=== PATIENT | female | born 1985 | race African-American/Black ===

== ENCOUNTER 2021-01-28 21:50 | Emergency (ER) | payer OTHER, SELFPAY ==
--- NOTE | ~2021-01-28 | CT_ITS ---
EXAMINATION: CT abdomen pelvis w con INDICATION: Abdominal pain TECHNIQUE: Computed tomographic images of the abdomen and pelvis were obtained after the administrati on of 100 cc of Omnipaque 350 intravenous contrast. The dose-length product (DLP) was 1396.15 mGy-cm. Automated exposure control and iterative reconstruction technique were employed. COMPARISON: None available FINDINGS: Minimal dependent atelectasis is present in the lung bases. The heart size is normal. The g allbladder is surgically absent. The liver, spleen, pancreas, and adrenal glands are normal. There is a 6 mm cyst of the left kidney. Cortical scarring is noted in the lower pole of the right kidney. No pathologically enlarged abdominal or pelvic lymph nodes are identified. There is no free intraperito yamel gas or evidence of bowel obstruction. There is a midline supraumbilical hernia containing a shor t segment of nonobstructed transverse colon. Multiple additional small fat-containing supraumbilical and epigastric hernias are present. The appendix measures up to 8 mm. There is no fat stranding surro unding the appendix. Mild lumbar spondylosis is noted. There is mild wall thickening of the urinary b ladder. IMPRESSION: 1. Midline supraumbilical hernia containing a short segment of nonobstructed transverse colon and mul tiple supraumbilical and epigastric ventral hernias containing fat. 2. Appendix measuring up to 8 mm without additional findings to suggest appendicitis. Correlate for r ight lower quadrant tenderness. 3. Mild wall thickening of the urinary bladder which could reflect cystitis or incomplete distention. Reviewed, dictated and finalized at location A. IMPRESSION: 1. Midline supraumbilical hernia containing a short segment of nonobstructed tr ansverse colon and multiple supraumbilical and epigastric ventral hernias conta ining fat. 2. Appendix measuring up to 8 mm without additional findings to suggest appendi citis. Correlate for right lower quadrant tenderness. 3. Mild wall thickening of the urinary bladder which could reflect cystitis or incomplete distention.
[2021-01-28 21:56] VITALS: BP 165/120; PULSE 85; RESP 18; TEMP 36.1; O2SAT 98
[2021-01-28 22:00] LABS: Glucose Point of Care 142 mg/dl (65-105)
[2021-01-28 22:01] VITALS: PULSE 86
--- NOTE | 2021-01-28 22:09 | ECG_ITS ---
Measurements Intervals [place] Rate: 89 P: 21 [place]: 183 QRS: 8 QRSD: 81 T: 37 QT: 363 QTc: 444 Interpretive Statements SINUS RHYTHM BASELINE ARTIFACT- I, II, III, V6 NORMAL ECG Electronically Signed On 01-28-2021 23:01:07 CDT by Homar Mcgee D.O.
[2021-01-28 22:16] VITALS: BP 167/114; PULSE 74; RESP 18; O2SAT 96
[2021-01-28 22:22] LABS: Basophils Percent Auto 0.4 % (0.2-1.2); Eosinophils Absolute Auto 0.1 K/mm3 (0-0.3); Eosinophils Percent Auto 0.6 % (0-4.4); Hematocrit 38.1 % (37.0-47.0); Immature Granulocyte Absolute 0.02 K/mm3 (0.00-0.031); Immature Granulocyte Percent A 0.2 % (0-0.5); Lymphocytes Percent Auto 25.9 % (18.3-44.2); Mean Corpuscular HGB Conc 34.1 g/dl (32-36); Mean Corpuscular Hemoglobin 31.3 pg (26-34); Mean Corpuscular Volume 91.6 fl (80-100); Mean Platelet Volume 8.8 fl (7.4-10.4); Monocytes Absolute Auto 0.4 K/mm3 (0.1-0.6); Monocytes Percent Auto 4.5 % (2.6-8.5); Neutrophils Absolute Auto 5.8 K/mm3 (1.3-6.7); Neutrophils Percent Auto 68.4 % (45.5-73.1); Platelet Count Result 233 k/mm3 (150-375); Red Blood Count 4.16 M/mm3 (4.2-5.4); Red Cell Distribution Width 13.6 % (11.5-14.5); White Blood Count 8.5 K/mm3 (4.5-10.0)
[2021-01-28 23:07] VITALS: BP 170/102; PULSE 89; RESP 18; O2SAT 99
[2021-01-28 23:21] LABS: Alanine Aminotransferase 29 U/L (4-35); Albumin Level 4.3 g/dL (3.5-5.1); Alkaline Phosphatase 59 U/L (38-126); Anion Gap 13 mmol/L (8-16); Aspartate Amino Transferase 44 U/L (14-36); Bilirubin,Total 0.8 mg/dL (0.2-1.3); Blood Urea Nitrogen 12 mg/dL (7-17); Carbon Dioxide 24 mmol/L (22-30); Chloride 98 mmol/L (98-107); Estimated Glomerular Filt Rate > 60; Glucose 132 mg/dL (65-110); Lipase 89 U/L (23-300); Potassium 4.4 mmol/L (3.4-5.0); Sodium 135 mmol/L (137-145)
--- NOTE | 2021-01-28 23:41 | PC.NURSE ---
2330 pt sitting up in bed will not answers question staring forward mild generalized shaking erp notified request ativan 1mg iv
[2021-01-28] MEDS: LORazepam INJ (*CRX) 2 MG/ML VIAL (23:42)
[2021-01-28] MEDS: ONDANSETRON INJ 4 MG/2 ML VIAL IV PUSH (23:46)
--- NOTE | 2021-01-28 23:55 | ED.GENADULT ---
HPI - General Adult General Chief complaint: Seizure Stated complaint: EMESIS X 2 WITH SEIZURES X 2 Time Seen by Provider: 01/28/21 23:07 History of Present Illness HPI narrative: Patient 35-year-old female presents emerged part with chief of abdominal pain nausea and vomiting. The patient reports that she has history of seizure disorder and takes a seizure medication thinks it is Keppra but not quite sure patient states she is not taken her medication in a couple days due to being late for work. Patient states he was at work today had 2 episodes of vomiting and then had a seizure. They report there is a generalized tonic-clonic seizure patient reports that she has a history of seizures and this is quite common for her. Review of Systems Review of Systems: A 10 system review of systems was completed on the patient and is negative except for what is stated in the HPI. Nursing and ancillary documentation was reviewed. Exam Narrative: GENERAL: Well-appearing, well-nourished, and in no acute distress. HEAD: Normocephalic, atraumatic. EYES: PERRLA and EOMI. ENT: Nares clear, no rhinorrhea or epistaxis. Mucous membranes moist. NECK: Supple. CHEST: Clear to auscultation. No respiratory distress. HEART: Regular rate and rhythm. No murmur heard. Normal peripheral pulses. ABDOMEN: Soft, diffuse tenderness to palpation in the epigastric region, nondistended, normal active bowel sounds. EXTREMITIES: Normal range of motion. No edema. SKIN: Warm, dry, no rash. NEURO: No focal deficits. Alert and oriented x3. PSYCH: Normal mood and affect. Course Course Emergency Course: CT scan showed evidence of a mildly enlarged appendix without evidence of surrounding inflammatory change. Case was discussed with Dr. shanks who agreed that he did not present like classic appendicitis recommended starting the patient on Cipro and Flagyl and having the patient return to the emergency department if she has worsening symptoms. Vital Signs Vital signs: Vital Signs Temperature 36.1 C L 01/28/21 21:56 Pulse Rate 85 01/28/21 21:56 Respiratory Rate 18 01/28/21 21:56 Blood Pressure 165/120 H 01/28/21 21:56 Pulse Oximetry 98 01/28/21 21:56 Temperature 37.1 C 01/29/21 00:06 Pulse Rate 85 01/29/21 01:12 Respiratory Rate 18 01/29/21 01:12 Blood Pressure 160/100 H 01/29/21 01:12 Pulse Oximetry 96 01/29/21 01:12 Medical Decision Making Vital Signs Vital Signs: Vital Signs Temperature 36.1 C L 01/28/21 21:56 Pulse Rate 85 01/28/21 21:56 Respiratory Rate 18 01/28/21 21:56 Blood Pressure 165/120 H 01/28/21 21:56 Pulse Oximetry 98 01/28/21 21:56 Temperature 37.1 C 01/29/21 00:06 Pulse Rate 85 01/29/21 01:12 Respiratory Rate 18 01/29/21 01:12 Blood Pressure 160/100 H 01/29/21 01:12 Pulse Oximetry 96 01/29/21 01:12 Lab Data Result diagrams: 01/28/21 22:16 01/28/21 22:16 Labs: Lab Results 01/28/21 01/28/21 01/28/21 Range/Units 21:57 22:16 22:16 WBC 8.5 (4.5-10.0) K/mm3 RBC 4.16 L (4.2-5.4) M/mm3 Hgb 13.0 (12.0-15.0) g/dL Hct 38.1 (37.0-47.0) % MCV 91.6 (80-100) fl MCH 31.3 (26-34) pg MCHC 34.1 (32-36) g/dl RDW 13.6 (11.5-14.5) % Plt Count 233 (150-375) k/mm3 MPV 8.8 (7.4-10.4) fl Immature Gran % (Auto) 0.2 (0-0.5) % Neut % (Auto) 68.4 (45.5-73.1) % Lymph % (Auto) 25.9 (18.3-44.2) % [place] % (Auto) 4.5 (2.6-8.5) % Eos % (Auto) 0.6 (0-4.4) % Baso % (Auto) 0.4 (0.2-1.2) % Lymph # (Auto) 2.20 (0.9-3.2) K/mm3 [place] # (Auto) 0.4 (0.1-0.6) K/mm3 Eos # (Auto) 0.1 (0-0.3) K/mm3 Baso # (Auto) 0.0 (0.0-0.1) K/mm3 Abs Immat Gran (auto) 0.02 (0.00-0.031) K/mm3 Absolute Neuts (auto) 5.8 (1.3-6.7) K/mm3 Absolute Nucleated RBC 0.0 (0.0-0.012) K/mm3 Nucleated RBC % 0.0 (0.0-0.2) % Sodium 135 L (137-145) mmol/L Potassium 4.4 (3.4-5.0) mmol/L
[2021-01-29] MEDS: levETIRAcetam 500MG/NACL 100ML 500 MG/100 ML BAG 400 MG IVPB (00:01)
[2021-01-29] MEDS: SODIUM CHLORIDE 0.9% IV 1,000 ML 999 ML IV CONT (00:05)
[2021-01-29 00:06] VITALS: BP 157/101; PULSE 85; RESP 18; TEMP 37.1; O2SAT 96
[2021-01-29 01:12] VITALS: BP 160/100; PULSE 85; RESP 18; O2SAT 96
--- NOTE | 2021-01-29 02:01 | PC.NURSE ---
erp notified of elevated bp states ok for patient discharge take home meds
[2021-01-29] MEDS: CIPROFLOXACIN 500 MG TAB PO (02:02)
[2021-01-29] MEDS: metroNIDAZOLE 250 MG TABLET 500 MG PO (02:02)
== END 2021-01-29 02:20 | disposition home or self-care (01) ==
PROVIDERS: Emergency Provider Emergency Medicine
DX: R10.84 Generalized abdominal pain (principal); G40.909 Epilepsy, unspecified, not intractable, without status epilepticus
CPT/HCPCS: 36415; 74177; 80053; 82948; 83690; 85025; 93005; 96361; 96365; 96374; 96375; 99284; A9270; J1953; J2060; J2405; J7030; Q9967